=== PATIENT | male | born 1940 | race Caucasian/White ===

== ENCOUNTER → 2019-04-28 | Outpatient (CLI) | payer MEDICARE, BC ==
[2019-04-28 15:13] LABS: Basophils % (A) 0 %; Eosinophils # (A) 0.1 k/uL (0-0.7); Eosinophils % (A) 2 %; HCT 41.8 % (39.0-53.0); HGB 13.9 gm/dL (13.0-17.5); Lymphocytes # (A) 1.7 k/uL (1.0-4.8); Lymphocytes % (A) 29 %; MCH 31.4 pg (25.0-35.0); MCHC 33.2 g/dL (31.0-37.0); MCV 94.6 fL (80.0-100.0); Mean Platelet Volume 7.8; Monocytes # (A) 0.4 k/uL (0-1.0); Monocytes % (A) 6 %; Neutrophils # (A) 3.5 k/uL (1.3-7.7); Neutrophils % (A) 60 %; Platelet Count 141 k/uL (150-450); RBC 4.42 m/uL (4.30-5.90); RDW 11.9 % (11.5-15.5); WBC 5.8 k/uL (3.8-10.6)
[2019-04-28 15:40] LABS: Calcium 9.5 mg/dL (8.4-10.2); Potassium 4.6 mmol/L (3.5-5.1)
== END | disposition home or self-care (01) ==
LOC: LABPAT 13:26
PROVIDERS: ATTEND Urology
DX: Z01.812 Encounter for preprocedural laboratory examination (principal); Z01.818 Encounter for other preprocedural examination; N40.1 Benign prostatic hyperplasia with lower urinary tract symptoms; R33.9 Retention of urine, unspecified; N13.8 Other obstructive and reflux uropathy; I10 Essential (primary) hypertension
CPT/HCPCS: 36415; 80048; 85025; 87077; 87086; 87186; 93005

== ENCOUNTER 2019-05-05 11:21 | Day surgery (SDC) | payer MEDICARE, BC ==
[2019-05-02 16:10] VITALS: BMI 36.6
--- NOTE | 2019-05-05 07:28 | P.GSHP ---
History of Present Illness H&P Date: 05/05/19 Chief Complaint: Urinary retention The patient is a 79-year-old white male with a long history of BPH. Bladder emptying has become incompletely, and the postvoid residual increased to 195 mL in June 2018. At that time, he declined BPH treatment. However, when seen back in December 2018, the postvoid residual had increased to 250 mL and tamsulosin was prescribed. He was found to be in urinary retention in February 2019. The tamsulosin dosage was increased to 0.8 mg daily, and finasteride was prescribed. However, the retention persisted. The PSA level increased to 5.9. He underwent a prostate ultrasound with biopsies, revealing a prostate volume of 85 mL. 12 biopsies were obtained, one of which showed evidence of adenocarcinoma (Anibal 3 + 4). I had a lengthy discussion with the patient and his family regarding surgical treatment options. A robotic-assisted laparoscopic prostatectomy was discussed, given its dual benefit of optimizing the ability to void and removing the cancer. However, the patient's cancer risk is felt to be low, and potential risks are significantly greater than those of a transurethral resection of prostate (TURP). It was ultimately decided to proceed with a TURP, and to manage the prostate cancer with active surveillance. - Constitutional Constitutional: Denies chills, Denies fever - Cardiovascular Cardiovascular: Reports high blood pressure - Genitourinary (Female) Genitourinary: Reports as per HPI - Neurological Neurological: Reports hearing difficulties - Psychiatric Psychiatric: Reports anxiety Past Medical History Past Medical History: Hyperlipidemia, Prostate Disorder Additional Past Medical History / Comment(s): pt states currently on antibiotics for urine infection. pt has IDC History of Any Multi-Drug Resistant Organisms: None Reported Past Surgical History: Joint Replacement Additional Past Surgical History / Comment(s): avinash knees,rt hip,rt shoulder replacement Past Anesthesia/Blood Transfusion Reactions: No Reported Reaction Past Psychological History: Anxiety Additional Psychological History / Comment(s): claustrophobic Smoking Status: Former smoker Past Alcohol Use History: None Reported Additional Past Alcohol Use History / Comment(s): quit smoking 30 years ago Past Drug Use History: None Reported - Past Family History Mother Family Medical History: No Reported History Medications and Allergies Home Medications Medication Instructions Recorded Confirmed Type Finasteride [Proscar] 5 mg PO HS 05/02/19 05/02/19 History Lisinopril [Zestril] 10 mg PO HS 05/02/19 05/02/19 History PARoxetine [Paxil] 20 mg PO HS 05/02/19 05/02/19 History Sulfamethoxazole/Trimethoprim 1 each PO BID 05/02/19 05/02/19 History [Bactrim DS 800-160 mg] Tamsulosin HCl [Flomax] 0.4 mg PO HS 05/02/19 05/02/19 History Allergies Allergy/AdvReac Type Severity Reaction Status Date / Time codeine Allergy anxiety Verified 05/02/19 16:18 Surgical - Exam - General well developed, well nourished, no distress - Respiratory normal respiratory effort, clear to auscultation - Cardiovascular Rhythm: regular Abnormal Heart Sounds: no systolic murmur, no diastolic murmur, no rub, no S3 Gallop, no S4 Gallop, no click, no other - Abdomen Abdomen: soft, non tender, no guarding, no rigid, no rebound - Genitourinary normal penis with no external lesions, testicles non-tender - Psychiatric oriented to time, oriented to person, oriented to place, speech is normal, memory intact Assessment and Plan (1) Retention of urine, unspecified Status: Acute Code(s): R33.9 - RETENTION OF URINE, UNSPECIFIED SNOMED Code(s): 835672524 (2) Adenocarcinoma of prostate Status: Acute Code(s): C61 - MALIGNANT NEOPLASM OF PROSTATE SNOMED Code(s): 725073070 Plan: The patient has failed medical therapy. He has elected to undergo a TURP. Potential risks were discussed, including anesthesia, bleeding, infection, retrograde ejaculation, incontinence, and vesical neck contracture. He is aware that his urinary retention may persist. It is anticipated that he will be admitted post-operatively, likely for one night. The patient expressed an understanding with regard to possible complications and outcome. Following a lengthy discussion, as a result of shared decision making, the patient has elected to proceed with a TURP.
[~2019-05-05 11:21] MED LIST: DEXAMETHASONE SOD PHOSPHATE 10 MG/ML 1 ML VIAL IV ONE; GENTAMICIN 120 MG in SODIUM CHLORIDE 0.9% 100 ML IVPB ONE; LIDOCAINE 1% 20 ML VIAL (10MG/ML) FOR IV START INTRADERMA PRN; MORPHINE SULFATE 2 MG/ML SYRINGE IV PRN; ONDANSETRON 4 MG/2 ML VIAL IVP ONE; ONDANSETRON 4 MG/2 ML VIAL IVP PRN
[2019-05-05] MEDS: LACTATED RINGERS 1,000 ML IV SCH (12:06)
[2019-05-05] MEDS ORDERED: ePHEDrine SULFATE/0.9% NACL/PF 50 MG/5 ML SYRINGE IV ONE (12:59)
[2019-05-05] MEDS ORDERED: fentaNYL (PF) 50 MCG/ML 2 ML AMP ONE (12:59)
[2019-05-05] MEDS ORDERED: PHENYLEPHRINE-0.9% NACL SYG 1 MG/10 ML SYRINGE ONE (12:59)
[2019-05-05] MEDS ORDERED: GLYCOPYRROLATE 0.2 MG/ML 2 ML VIAL ONE (12:59)
[2019-05-05] MEDS ORDERED: ROCURONIUM BROMIDE 10 MG/ML 10 ML VIAL IV ONE (12:59)
[2019-05-05] MEDS ORDERED: PROPOFOL 10 MG/ML 20 ML VIAL IV ONE (12:59)
[2019-05-05] MEDS ORDERED: NEOSTIGMINE 1 MG/ML 10 ML VIAL ONE (12:59)
[2019-05-05] MEDS ORDERED: MIDAZOLAM 2 MG/2 ML VIAL ONE (12:59)
[2019-05-05] MEDS ORDERED: LIDOCAINE 1% INJ 10MG/ML (20 ML MDV) ONE (12:59)
[2019-05-05] MEDS ORDERED: SUCCINYLCHOLINE CHLORIDE 100 MG/5 ML SYR IV ONE (12:59)
[2019-05-05] MEDS ORDERED: LACTATED RINGERS 1,000 ML IV ONE (14:13)
--- NOTE | 2019-05-05 16:11 | P.OP ---
Date of Procedure: 05/05/19 Preoperative Diagnosis: Urinary retention, prostate cancer Postoperative Diagnosis: Same Procedure(s) Performed: Cystoscopy, bipolar transurethral resection of prostate (TURP) Anesthesia: SAADIA Surgeon: Gm Soriano Estimated Blood Loss (ml): 100 IV fluids (ml): 1,600 Pathology: other (Prostate chips) Condition: stable Disposition: PACU Indications for Procedure: The patient is a 79-year-old white male with a long history of BPH. Bladder emptying has become incompletely, and the postvoid residual increased to 195 mL in June 2018. At that time, he declined BPH treatment. However, when seen back in December 2018, the postvoid residual had increased to 250 mL and tamsulosin was prescribed. He was found to be in urinary retention in February 2019. The tamsulosin dosage was increased to 0.8 mg daily, and finasteride was prescribed. However, the retention persisted. The PSA level increased to 5.9. He underwent a prostate ultrasound with biopsies, revealing a prostate volume of 85 mL. 12 biopsies were obtained, one of which showed evidence of adenocarcinoma (Millis 3 + 4). He has elected to proceed with a TURP, and to manage the prostate cancer with active surveillance. Operative Findings: Bilobar BPH, visually occluded. Description of Procedure: The patient was taken in the operating room and placed in the dorsolithotomy position. The external genitalia was prepped and draped sterilely. The 25- Haitian [employer] resectoscope sheath was introduced into the bladder. The bladder was inspected. Both ureteral orifices were of normal anatomic location and configuration, and clear urine effluxed from both. No tumors or foreign bodies were seen. Examination of the prostate revealed complete obstruction with a bilobar configuration. Using the bipolar cutting loop, the lateral lobes were resected down to the surgical capsule. The floor of the prostate was then resected, proximal to the verumontanum. Lastly, any remaining anterior tissue was resected. The apical tissue was then carefully resected. The resection was carried down to the surgical capsule in all 4 quadrants. The prostatic fossa was then carefully examined, and any areas of bleeding were controlled with electrocautery. Very good hemostasis was attained. The resectoscope was withdrawn into the bulbous urethra. The external urinary sphincter remained intact. The prostatic fossa was open. The Launchups evacuator was used to remove all prostate chips from the bladder. These were saved and sent for pathologic examination. The resectoscope was removed, and a 22 Haitian, 3-Way Beck catheter was placed. The return was essentially clear. Continuous bladder irrigation was started using 0.9 normal saline. The patient tolerated the procedure well was taken to the recovery room in stable condition.
[2019-05-05] MEDS ORDERED: BELLADONNA-OPIUM 16.2-60 MG 1 EACH SUPP RECTAL PRN (16:12)
[2019-05-05] MEDS ORDERED: ACETAMINOPHEN TAB 325 MG TAB PO PRN (16:12)
[2019-05-05] MEDS ORDERED: MAG HYDROX/AL HYDROX/SIMETH 30 ML CUP PO PRN (16:12)
[2019-05-05] MEDS: DEXTROSE 5%-0.45% NACL 1,000 ML IV SCH (17:39)
[2019-05-05] MEDS: SULFAMETHOX-TMP 800-160MG 1 EACH TAB PO SCH (20:27)
[2019-05-05] MEDS: PARoxetine 20 MG TAB PO SCH (20:27)
[2019-05-05] MEDS: SODIUM CHLORIDE 0.9% IRRIGATIO 3,000 ML IRRIGATION PRN (20:27)
[2019-05-05] MEDS: FINASTERIDE 5 MG TAB PO SCH (20:27)
[2019-05-05] MEDS: DOCUSATE 100 MG CAP PO SCH (20:27)
[2019-05-05] MEDS: LISINOPRIL 10 MG TAB PO SCH (20:27)
[2019-05-06] MEDS: SODIUM CHLORIDE 0.9% IRRIGATIO 3,000 ML IRRIGATION PRN ×2 (01:23→09:11)
[2019-05-06] MEDS: DEXTROSE 5%-0.45% NACL 1,000 ML IV SCH ×2 (06:03→20:22)
[2019-05-06] MEDS: LACTATED RINGERS 1,000 ML IV SCH (06:04)
[2019-05-06] MEDS: SULFAMETHOX-TMP 800-160MG 1 EACH TAB PO SCH ×2 (08:37→20:17)
[2019-05-06] MEDS: DOCUSATE 100 MG CAP PO SCH ×2 (08:37→20:17)
--- NOTE | 2019-05-06 10:14 | P.PN ---
Subjective Progress Note Date: 05/06/19 the patient and his first day postop from a bipolar TURP for a very large prostate. He has had bladder irrigation overnight. His vital signs are stable. The urine is very very light tea-colored with irrigation. I will discontinue the irrigation and ambulate the patient. I will observe him to later this afternoon or tomorrow. Instructions have been given and understood by the patient. Objective - Vital Signs Vital signs: Vital Signs Temp 97.5 F L 05/06/19 07:00 Pulse 76 05/06/19 07:00 Resp 17 05/06/19 07:00 BP 118/73 05/06/19 07:00 Pulse Ox 94 L 05/06/19 07:00 Intake & Output 05/05/19 05/06/19 05/06/19 18:59 06:59 18:59 Intake Total 1753 300 236 Output Total 1620 7500 2320 Balance 133 -7200 -2084 Weight 129.5 kg Intake: IV 1753 Intake, IV Titration 150 Amount Dextrose 5%-0.45% NaCl 1, 150 000 ml @ 75 mls/hr IV . [id number] Rx#:[id number] Oral 150 236 Output: Urine 1520 7500 2320 Estimated Blood Loss 100 Other: Voiding Method Indwelling Catheter Indwelling Catheter # Voids 1 1
[2019-05-06] MEDS: LISINOPRIL 10 MG TAB PO SCH (20:17)
[2019-05-06] MEDS: PARoxetine 20 MG TAB PO SCH (20:17)
[2019-05-06] MEDS: FINASTERIDE 5 MG TAB PO SCH (20:17)
[2019-05-07] MEDS: LACTATED RINGERS 1,000 ML IV SCH (02:48)
[2019-05-07 08:22] VITALS: BP 144/89; PULSE 76; RESP 18; TEMP 98.5
[2019-05-07] MEDS: SULFAMETHOX-TMP 800-160MG 1 EACH TAB PO SCH (09:02)
[2019-05-07] MEDS: DOCUSATE 100 MG CAP PO SCH (09:02)
--- NOTE | 2019-05-07 10:52 | P.DS ---
Providers Attending physician: Gm Soriano Primary care physician: Obd[facility] Course: Patient was admitted 05/05/2019 for TURP of a large prostate gland. This was done uneventfully. He was kept in the hospital overnight. The patient was not ready for discharge home yesterday as the urine was slightly pink and he was not comfortable going home yet. Irrigation is been stopped. The urine is light tea-colored. He is ready for discharge home. A coma catheter for 1 week. A follow-up with in one week. He's been instructed to make a phone call to arrange this appointment tomorrow. Operative instructions have been given. He resume his home medications except blood thinners. The patient understands and consents. Patient Condition at Discharge: Good Plan - Discharge Summary Discharge Rx Participant: No New Discharge Prescriptions: No Action Lisinopril [Zestril] 10 mg PO HS Sulfamethoxazole/Trimethoprim [Bactrim DS 800-160 mg] 1 each PO BID Tamsulosin HCl [Flomax] 0.4 mg PO HS Finasteride [Proscar] 5 mg PO HS PARoxetine [Paxil] 20 mg PO HS Discharge Medication List Finasteride [Proscar] 5 mg PO HS 05/02/19 [History] Lisinopril [Zestril] 10 mg PO HS 05/02/19 [History] PARoxetine [Paxil] 20 mg PO HS 05/02/19 [History] Sulfamethoxazole/Trimethoprim [Bactrim DS 800-160 mg] 1 each PO BID 05/02/19 [History] Tamsulosin HCl [Flomax] 0.4 mg PO HS 05/02/19 [History] Follow up Appointment(s)/Referral(s): Gm Soriano MD [STAFF PHYSICIAN] - 05/15/19 Activity/Diet/Wound Care/Special Instructions: Discharge home with Beck catheter. No lifting or straining. Drink plenty of fluids, and take a stool softener to avoid constipation. Instruct patient to remove Beck catheter early in the morning on 05/15/2019 and schedule a follow- up appointment that day in the late afternoon. Discharge Disposition: HOME SELF-CARE
== END 2019-05-07 14:24 | disposition home or self-care (01) ==
LOC: OR 11:21 → 4SSUR 16:27 → OR 05-07 14:24
PROVIDERS: ATTEND Urology
DX: C61 Malignant neoplasm of prostate (principal); N40.1 Benign prostatic hyperplasia with lower urinary tract symptoms; R33.8 Other retention of urine; N13.8 Other obstructive and reflux uropathy; N41.1 Chronic prostatitis; N39.0 Urinary tract infection, site not specified; F41.9 Anxiety disorder, unspecified; E78.5 Hyperlipidemia, unspecified; F40.240 Claustrophobia; I10 Essential (primary) hypertension; Z96.653 Presence of artificial knee joint, bilateral; Z96.641 Presence of right artificial hip joint; Z96.611 Presence of right artificial shoulder joint; Z87.891 Personal history of nicotine dependence; Z79.899 Other long term (current) drug therapy; Z88.5 Allergy status to narcotic agent; Z97.2 Presence of dental prosthetic device (complete) (partial); Z96.0 Presence of urogenital implants
CPT/HCPCS: 52601; 88305; S0138 ×2; J2250; J1100; J2710; J0690; J2405; J2001; J3010; J1580; J2370; J0330; J2704

== ENCOUNTER → 2019-11-16 | Outpatient (CLI) | payer MEDICARE, BC | END | disposition home or self-care (01) | LOC: LABWHC1 09:58 | PROVIDERS: ATTEND Urology | DX: C61 Malignant neoplasm of prostate (principal) | CPT/HCPCS: 36415; 84153 ==

== ENCOUNTER → 2020-05-13 | Outpatient (CLI) | payer MEDICARE, BC | END | disposition home or self-care (01) | LOC: LABWHC1 11:48 | PROVIDERS: ATTEND Urology | DX: C61 Malignant neoplasm of prostate (principal) | CPT/HCPCS: 36415; 84153 ==

== ENCOUNTER → 2020-12-18 | Outpatient (CLI) | payer MEDICARE, BC | END | disposition home or self-care (01) | LOC: LABWHC1 13:56 | PROVIDERS: ATTEND Urology | DX: C61 Malignant neoplasm of prostate (principal) | CPT/HCPCS: 36415; 84153 ==

== ENCOUNTER → 2022-03-09 | Outpatient (CLI) | payer MEDICARE, BC | END | disposition home or self-care (01) | LOC: LABWHC1 14:09 | PROVIDERS: ATTEND Urology | DX: C61 Malignant neoplasm of prostate (principal) | CPT/HCPCS: 36415; 84153 ==

== ENCOUNTER → 2022-09-09 | Outpatient (CLI) | payer MEDICARE, BC | END | disposition home or self-care (01) | LOC: LABWHC1 11:16 | PROVIDERS: ATTEND Urology | DX: C61 Malignant neoplasm of prostate (principal) | CPT/HCPCS: 36415; 84153 ==

== ENCOUNTER → 2023-03-23 | Outpatient (CLI) | payer MEDICARE, BC | END | disposition home or self-care (01) | LOC: LABWHC1 09:29 | PROVIDERS: ATTEND Urology | DX: C61 Malignant neoplasm of prostate (principal) | CPT/HCPCS: 36415; 84153 ==

== ENCOUNTER → 2023-04-02 | Outpatient (CLI) | payer MEDICARE, BC ==
[2023-04-02 15:55] LABS: African American GFR (CKD) 77 (>60 ml/min/1.73 sqM); Blood Urea Nitrogen 23 mg/dL (9-20); Non-African American GFR(CKD) 66 (>60 ml/min/1.73 sqM)
--- NOTE | 2023-04-05 12:13 | CT ---
EXAMINATION TYPE: CT abdomen pelvis w con DATE OF EXAM: 04/02/2023 COMPARISON: None INDICATION: hematuria x 2 weeks DLP: 4365.2 mGycm, Automated exposure control for dose reduction was used. CONTRAST: 100 cc mL of Isovue 300. Study performed with Oral Contrast TECHNIQUE: Axial images were obtained from above the diaphragm to the pubic rami in the axial plane a t 5 mm thick sections. Reconstructed images are reviewed on the computer in the coronal plane. FINDINGS: There is some limitation on the exam due to beam hardening artifact. Limited CT sections are obtained the lung bases. The lung bases are clear. CT ABDOMEN: Liver: Normal Spleen: Normal Pancreas: Normal Adrenal glands: The adrenal glands are normal. Gallbladder: Normal Kidneys: No masses are evident. No hydronephrosis is present. No cysts are present. No renal stone s are identified. Aorta: Vascular calcification is within the aorta. Inferior vena cava: Normal. CT PELVIS: Right hip prosthesis causes limitation in the lower pelvis evaluation. Multiple diverticuli are through the sigmoid colon. No acute diverticulitis is evident. Loops of sarwat l distended with oral contrast appear normal. There are loops of bowel which are incompletely distend ed or lack oral contrast limiting their evaluation. Appendix: Not identified. No dilated tubular structure or inflammatory changes evident. Urinary bladder: Normal. Genitourinary structures: Prostate appears normal as visualized. Osseous structures: No suspicious lytic or sclerotic lesions. Some facet degenerative changes within the lumbar spine. IMPRESSION: 1. Some limitations on the examination from beam hardening artifact discussed above. 2. No suspicious renal or ureteral stones identified. 3. No obvious changes to account for hematuria.
== END | disposition home or self-care (01) ==
LOC: RADCTMAIN 09:50
PROVIDERS: ATTEND Urology
DX: R31.0 Gross hematuria (principal)
CPT/HCPCS: 82565; 84520; 74177; 36415; Q9967

== ENCOUNTER → 2023-09-28 | Outpatient (CLI) | payer MEDICARE, BC | END | disposition home or self-care (01) | LOC: LABWHC1 14:22 | PROVIDERS: ATTEND Urology | DX: C61 Malignant neoplasm of prostate (principal) | CPT/HCPCS: 36415; 84153 ==